=== PATIENT | female | born 1985 | race Asian ===

== ENCOUNTER 2019-11-23 23:25 | Emergency (ER) | payer MEDICAID ==
[~2019-11-23] VITALS: Ht 157.5 cm; Wt 57.2 kg
[~2019-11-23 23:25] MED LIST: LORA-835 PO
[2019-11-23 23:33] VITALS: BP 128/82
[2019-11-23] MEDS ORDERED: fluconazole 100mg tablet PO ONE (23:40)
[2019-11-23] MEDS ORDERED: CLOT15CR73 TP (23:40)
== END 2019-11-23 23:50 | disposition home or self-care (01) ==
LOC: ER 23:25
DX: B35.9 Dermatophytosis, unspecified (principal); Z79.899 Other long term (current) drug therapy
CPT/HCPCS: 99283

== ENCOUNTER 2021-12-17 12:09 | Outpatient (CLI) | payer OTHER ==
[~2021-12-17 12:09] MED LIST changes: +CLOT15CR73 TP
== END 2021-12-17 23:59 | disposition home or self-care (01) ==
LOC: RAD 12:09
DX: Z11.1 Encounter for screening for respiratory tuberculosis (principal)
CPT/HCPCS: 71046

== ENCOUNTER 2023-11-12 07:59 | Emergency (ER) | payer MEDICAID, OTHER ==
[~2023-11-12] VITALS: Ht 157.5 cm; Wt 63.6 kg
[2023-11-12 08:02] VITALS: BP 148/77; PULSE 77; RESP 16; TEMP 98.9; O2SAT 96
[2023-11-12 08:20] LABS: BILIRUBIN,URINE NEGATIVE (Neg); CLARITY,URINE CLOUDY (Clear); COLOR,URINE BROWN (Yellow); GLUCOSE, URINE NEGATIVE (Neg); KETONES,URINE NEGATIVE (Neg); LEUKOCYTE ESTERASE ,URINE SMALL (Neg); NITRITES, URINE POSITIVE (Neg); OCCULT BLOOD,URINE LARGE (Neg); PH,URINE 6.5 (4.8-8.0); PROTEIN,URINE 30 mg/dl (Neg); UROBILINOGEN,URINE 0.2 E.U/dL (0.2-1.0)
[2023-11-12 08:23] LABS: URINE HCG NEGATIVE (NEG)
[2023-11-12 08:29] LABS: UA COLLECTION TYPE CLN CATCH MIDSTREAM
[2023-11-12 08:30] LABS: RBC,URINE TNTC /HPF (0-2)
[2023-11-12 08:33] LABS: BACTERIA,URINE 2+ /HPF (Neg); SQUAMOUS EPITHELIAL CELL,UR FEW /LPF (FEW); WBC,URINE TNTC /HPF (0-4)
[2023-11-12] MEDS ORDERED: NITR100C6 PO (08:42)
[2023-11-12] MEDS ORDERED: PHEN-824 PO (08:42)
[2023-11-12] MEDS ORDERED: phenazopyridine 100mg tablet PO ONE (08:45)
[2023-11-12] MEDS ORDERED: nitrofuran monohydrate/nitrofuran macrocrysal 100 MG (MacroBID) capsule PO ONE (08:45)
== END 2023-11-12 08:58 | disposition home or self-care (01) ==
LOC: ER 07:59
DX: N39.0 Urinary tract infection, site not specified (principal); Z88.1 Allergy status to other antibiotic agents; Z91.040 Latex allergy status; Z79.899 Other long term (current) drug therapy
CPT/HCPCS: 81001; 81025; 87077; 87088; 87186; 99283

== ENCOUNTER 2024-04-09 13:17 | Outpatient (CLI) | payer MEDICAID, OTHER ==
[~2024-04-09 13:17] MED LIST changes: +NITR100C6 PO; +PHEN-824 PO
== END 2024-04-09 23:59 | disposition home or self-care (01) ==
LOC: RAD 13:17
PROVIDERS: ATTEND Internal Medicine Infectious Disease
DX: Z11.1 Encounter for screening for respiratory tuberculosis (principal)
CPT/HCPCS: 71046